=== PATIENT | female | born 1945 | race Caucasian/White ===

== ENCOUNTER 2017-01-28 10:23 | Emergency (ER) | payer MEDICARE, OTHER ==
[2017-01-28 10:39] LABS: BASOPHIL 0.4 % (0-2); HCT 40.6 % (37.0-47.0); HGB 13.6 g/dl (12.5-16.0); LYMPHOCYTE 25.3 % (15-48); MCH 29.4 pg (25.0-31.0); MCHC 33.5 g/dL (32.0-36.0); MCV 87.9 fL (78.0-100.0); MONOCYTE 5.8 % (0-12); MPV 9.8 fL (6.0-9.5); NEUTROPHIL 65.5 % (41-80); PLT 235 K/uL (150-400); RBC 4.62 M/uL (4.20-5.40); RDW 12.7 % (11.5-14.0); WBC 8.3 K/uL (4.0-10.5)
[2017-01-28 10:59] LABS: CKMB 1.98 ng/mL (0.97-4.94); MYOGLOBIN 34 ng/mL (26-65); TROPONIN T < 0.010 ng/mL
[2017-01-28 11:00] LABS: ALBUMIN 4.3 g/dL (3.4-4.8); BILIRUBIN - TOTAL 0.5 mg/dL (0.1-1.0); CREATININE 0.8 mg/dL (0.5-1.0); GLOBULIN (CALCULATION) 2.7 g/dL (2.2-4.2); POTASSIUM 4.8 mmol/L (3.5-5.1)
[2017-01-28 11:03] LABS: INR 1.06 (0.9-1.2); PROTHROMBIN TIME 13.4 SECONDS (11.7-14.0)
[2017-01-28 12:01] LABS: BILIRUBIN NEGATIVE (NEGATIVE); BLOOD NEGATIVE Ery/uL (NEGATIVE); CLARITY CLEAR (CLEAR); COLOR YELLOW (YELLOW); GLUCOSE (U) NORMAL (NORMAL); KETONE (U) NEGATIVE (NEGATIVE); LEUKOCYTES NEGATIVE Leu/uL (NEGATIVE); NITRITE NEGATIVE (NEGATIVE); PROTEIN NEGATIVE (NEGATIVE); UROBILINOGEN 0.2 mg/dL (0.2-1.0)
== END 2017-01-28 14:48 | disposition home or self-care (01) ==
LOC: FER 10:23 → EDBD 10:44 → FER 14:48
PROVIDERS: Emergency Medicine
DX: R41.82 Altered mental status, unspecified (principal); G20 Parkinson's disease; Z90.710 Acquired absence of both cervix and uterus; Z79.899 Other long term (current) drug therapy; Z86.73 Personal history of transient ischemic attack (TIA), and cerebral infarction without residual deficits
CPT/HCPCS: 36415; 70450; 70551; 71010; 80053; 80061; 81003; 82550; 82553; 83874; 84484; 85025; 85610; 85730; 93005